=== PATIENT | male | born 1995 | race Caucasian/White ===

== ENCOUNTER 2021-12-12 09:48 | Emergency (ER) | payer MEDICAID ==
[~2021-12-12] VITALS: Ht 185.4 cm; Wt 95.5 kg
[~2021-12-12 09:48] MED LIST: IBUP-1986 PO; METH-360 PO; NO HOME MEDS
[2021-12-12 09:58] VITALS: BP 154/55
[2021-12-12 13:01] LABS: HIV ANTIBODY 1&2 RAPID NON-REACTIVE (Neg)
[2021-12-13 11:29] LABS: HBSAG SCREEN Negative (Negative); HEPATITIS C ANTIBODY 0.1 s/co ratio (0.0-0.9)
== END 2021-12-12 10:33 | disposition home or self-care (01) ==
LOC: ER 09:50
DX: S61.203A Unspecified open wound of left middle finger without damage to nail, initial encounter (principal); F31.9 Bipolar disorder, unspecified; W46.1XXA Contact with contaminated hypodermic needle, initial encounter; Y93.89 Activity, other specified; Y92.89 Other specified places as the place of occurrence of the external cause; Y99.8 Other external cause status
CPT/HCPCS: 36415; 86703; 86706; 86803; 87340; 99283

== ENCOUNTER 2022-03-20 12:19 | Emergency (ER) | payer MEDICAID ==
[~2022-03-20] VITALS: Ht 185.4 cm; Wt 97.7 kg
[2022-03-20 12:57] VITALS: BP 130/62
--- NOTE | 2022-03-20 13:27 | NUR ---
SPOKE TO [employer]FF[employer]TER- DID NOT WANT HEAD CT AT THIS TIME.
[2022-03-20] MEDS ORDERED: ketorolac trometh inj. 60 MG/2 ML VIAL IM ONE (14:49)
== END 2022-03-20 15:08 | disposition home or self-care (01) ==
LOC: ER 12:20
DX: S09.90XA Unspecified injury of head, initial encounter (principal); R51.9 Headache, unspecified; H53.8 Other visual disturbances; Z79.899 Other long term (current) drug therapy; W19.XXXA Unspecified fall, initial encounter; Y93.89 Activity, other specified; Y92.89 Other specified places as the place of occurrence of the external cause; Y99.8 Other external cause status
CPT/HCPCS: 96372; 99283; J1885

== ENCOUNTER 2022-11-11 17:55 | Emergency (ER) | payer MEDICAID ==
[~2022-11-11] VITALS: Ht 188 cm; Wt 113.6 kg
[2022-11-11 18:19] VITALS: BP 116/89
== END 2022-11-11 23:27 | disposition left against medical advice (07) ==
LOC: ER 17:56
DX: L05.91 Pilonidal cyst without abscess (principal); Z53.21 Procedure and treatment not carried out due to patient leaving prior to being seen by health care provider
CPT/HCPCS: 99281